=== PATIENT | male | born 1965 | race Caucasian/White ===

== ENCOUNTER 2023-04-25 17:44 | Emergency (ER) | payer MEDICAID, SELFPAY ==
--- NOTE | ~2023-04-25 | CT_ITS ---
EXAMINATION: CT head/brain wo IV con CLINICAL INFORMATION: Reason for Exam blurry vision COMPARISON: None. TECHNIQUE: Contiguous axial imaging was performed from the skull base to vertex without intravenous contrast. Sagittal and coronal reformatted images were obtained. This CT examination was performed using dose optimization techniques as appropriate, variously including the following: * Automated exposure control * Adjustment of mA and/or kV according to patient size (this includes techniques or standardized protocols for targeted exams where dose is matched to indication/reason for exam; i.e. extremities or head) Use of iterative reconstruction technique DLP: 741.51 mGy-cm FINDINGS: No acute osseous or soft tissue abnormality. The mastoid air cells and visualized portions of the paranasal sinuses are well aerated. There is no evidence of acute intracranial hemorrhage or territorial infarction. No abnormal mass effect or midline shift is seen. Joel to white matter differentiation is well preserved. No extra-axial fluid collections are identified. No hydrocephalus. No significant volume loss. There is patchy hypodensity in the supratentorial white matter as well as involving the central karly, presumably reflecting moderate chronic microangiopathy. Chronic bithalamic lacunar infarcts. Left-sided eyelid weight results in streak artifact which obscures the left globe and orbit. CT/CT head/brain wo IV con IMPRESSION: 1. No acute intracranial abnormality including hemorrhage, mass effect, hydrocephalus, or acute territorial edematous infarction. 2. There is patchy hypodensity in the supratentorial white matter as well as involving the central karly, presumably reflecting moderate chronic microangiopathy. Chronic bithalamic lacunar infarcts.
--- NOTE | 2023-04-25 18:03 | ED.GENADULT ---
[facility] - General Adult General Chief complaint: Eye Problems Stated complaint: Blurry vision, hx of strokes, no thinners Time Seen by Provider: 04/25/23 18:02 Source: patient and EMS Mode of arrival: EMS History of Present Illness HPI narrative: 57-year-old male with extensive past medical history of 2 stroke comes in with blurry vision in bilateral eyes since 07:00 o'clock this morning but denies any other symptoms, all residual deficits noted to be stable and chronic for him. He denies any recent fever, chills. Patient initially presented as a stroke alert, however on evaluation there are other etiologies that we will explore in addition to CT of the head. Related Data Allergies Allergy/AdvReac Type Severity Reaction Status Date / Time No Known Allergies Allergy Verified 04/25/23 18:34 Review of Systems Review of Systems: Pertinent positives and negatives as stated in [facility] Past Medical History Source: nursing notes reviewed Onset Date is defined in the Problem List Problems that require an onset date and time if occurred within 24 hrs of arrival to the ED Aortic Dissection and Rupture; Neurologic impairment; Cardiopulmonary Arrest; Endotracheal Intubation; Insertion or Replacement of Mechanical Circulatory Assist Device Social History Social History Smoked in Last 30 Days: No Use of substances other than those prescribed or required for medical reasons: No Physical Exam ED Vital Signs: Vital Signs - 24 hr 04/25/23 18:10 04/25/23 20:31 Temperature 98.3 F Pulse Rate 76 61 Respiratory Rate 16 16 Blood Pressure 134/89 130/90 H Pulse Oximetry 96 97 Oxygen Delivery Method Room Air Room Air BMI result Body Mass Index 28.7 VITAL SIGNS: Reviewed. GENERAL: Well developed, well nourished, in no acute distress. HEAD: Normocephalic/atraumatic EYES: PERRLA, EOMI EARS: Ext canals without abnormality NOSE: Nares patent bilateral OROPHARYNX: no oral lesions noted, posterior pharynx clear NECK: Supple, no adenopathy LUNGS: Normal breath sounds. No adventitious sounds or accessory muscle use. SpO2<96> CARDIOVASCULAR: Regular rate and rhythm without noted murmurs ABDOMEN: Soft, non-tender, non-distended with bowel sounds. MUSCULOSKELETAL: No tenderness, deformities, or effusions noted on gross inspection. EXTREMITIES: No cyanosis, clubbing or edema. SKIN: Inspection of the skin reveals no rashes NEUROLOGIC: Alert and oriented x 4. Patient has noted left facial droop which is baseline for him Medical Decision Making Medical Decision Making [facility] Narrative: 57-year-old male with history and clinical presentation, DDX: Diabetic retinopathy, optic chiasm pathology felt to be less likely, patient is not noted to be hyperglycemic at this time so do not think that this is distortion leading to blurry vision. Patient has no eye pain and do not suspect acute angle glaucoma. I reviewed all investigations and hematologic indices are grossly within normal limits without leukocytosis or left shift, no anemia or thrombocytopenia. Coagulation studies are within normal limits. Chemistry indices do not demonstrate any gross abnormalities as there is no evidence of CHRISTOPHER or electrolyte/liver enzyme derangements. CT of the head is negative for acute intracranial hemorrhage or mass effect. Visual acuity demonstrated OS- 20/50 OD- 20/100 BOTH- 20/70 My interpretation is that patient may be experiencing the need for corrective lenses, there is a possibility the patient will need to pursue evaluation for diabetic retinopathy, I do not find any evidence to suggest any other acute I findings, there is no associated depth abnormality, there is no double vision, and it affects both eyes. There was no associated hyperglycemia. Patient is otherwise discharged with instructions to follow-up with an pyridine recovery operator and he has been given a referral to follow-up with Dr. Navarrete. Differential Diagnosis Differential Diagnoses: The differential diagnosis associated with the presentation includes Please see the discussion above Admission/Observation Consideration of admission/observation: Escalation of care including admission/observation considered Please see the discussion above Lab Data [facility] Lab Attestation statement: I reviewed the patient's lab results. Please see the discussion above 04/25/23 19:55 04/25/23 19:55 Labs: Lab Results 04/25/23 04/25/23 Range/Units 19:55 21:16 WBC 8.6 (4.8-10.8) X10*3/uL RBC 4.95 (4.60-5.80) X10*6/uL Hgb 15.0 (14.0-18.0) g/dl Hct 44.0 (42.0-52.0) % MCV 88.9 (80.0-98.0) fL MCH 30.3 (27.0-33.0) pg MCHC 34.1 (31.0-36.0) g/dl RDW 12.3 (11.0-16.0) % Plt Count 252 (160-400) X10*3/uL MPV 10.0 (9.4-12.4) fL Immature Gran % (Auto) 0.2 (0.0-0.4) % Neut % (Auto) 59.3 (45-73) % Lymph % (Auto) 27.1 (20-40) % [place] % (Auto) 9.7 (2-11) % Eos % (Auto) 2.8 (0-4) % Baso % (Auto) 0.9 (0-2) % Lymph # (Auto) 2.3 (1.2-4.9) X10*3/uL [place] # (Auto) 0.8 (0.1-1.2) X10*3/uL Eos # (Auto) 0.2 (0.0-0.4) X10*3/uL Baso # (Auto) 0.1 (0.0-0.2) X10*3/uL Abs Immat Gran (auto) 0.02 (0.00-0.03) X10*3/uL Absolute Neuts (auto) 5.1 (2.0-8.3) x10*3/uL Absolute Nucleated RBC 0.000 (0.0-0.012) X10*3/uL Nucleated RBC % (auto) 0.0 (0.0-0.2) /100WBC PT 13.1 (11.1-13.3) SEC INR 1.1 (0.9-1.1) Sodium 144 (135-145) mmol/L Potassium 3.4 (3.3-5.1) mmol/L Chloride 106 (96-108) mmol/L Carbon Dioxide 29 (22-29) mmol/L Anion Gap 12 (12-20) BUN 10 (9-16) mg/dL Creatinine 0.79 (0.5-1.4) mg/dL Estim Creat Clear Calc 112.4 Estimated GFR > 60 POC Glucose 94 (60-115) mg/dL Random Glucose 91 (60-115) mg/dL Calcium 9.5 (8.4-10.2) mg/dL Total Bilirubin 0.7 (0.0-1.0) mg/dL AST 23 (5-37) U/L ALT 28 (0-40) U/L Alkaline Phosphatase 104 (39-117) U/L Total Protein 7.3 (6.5-8.0) g/dL Albumin 4.0 (3.5-5.0) g/dL Independent Interpretation I performed an independent interpretation of an: EKG Interpretation: Sinus bradycardia, HR-58, no STEMI, MT/QTC are within normal limits. Radiology Impression Discussion of test interpretation with radiology: I have reviewed the radiologist's reading. Radiologist Impression: Please see the discussion above Chronic Conditions Patient?s care impacted by: Diabetes, Hypertension and Other 2 prior CVAs Critical Care Time Critical Care Time Critical Care Time: Yes Total Critical Care Time: 45 Attestation: I personally attest to this time spent taking care of the patient. Discharge Plan Discharge Clinical Impression: Blurred vision, bilateral Patient Disposition: Home, Self-Care Instructions: Blurred Vision (ED) Additional Instructions: 1. Take home medications as prescribed. 2. I have provided you with a referral for an pyridine recovery operator and recommend that you follow-up at your earliest convenience by calling the office and setting up an appointment. 3. Please follow-up with your primary care doctor in the next 1-2 days. Return to the ER for any worsening symptoms. Referrals: Sinan Navarrete [Physician] -
[2023-04-25 18:10] VITALS: BP 126/74; BP 134/89; PULSE 76; PULSE 88; RESP 16; O2SAT 96; O2SAT 98; BMI 28.7
--- NOTE | 2023-04-25 19:25 | ECG_ITS ---
Test Reason : BLURRY VISION Blood Pressure : / mmHG Vent. Rate : 058 BPM Atrial Rate : 058 BPM P-R Int : 168 ms QRS Dur : 102 ms QT Int : 470 ms P-R-T Axes : 038 016 -22 degrees QTc Int : 461 ms Sinus bradycardia Cannot rule out Anterior infarct , age undetermined T wave abnormality, consider inferior ischemia Abnormal ECG No previous ECGs available Referred By: Michelle Reddy Electronically Signed By:MANJINDER DOMINGUEZ MD
[2023-04-25 19:59] LABS: MANUAL DIFF FLAG NO
[2023-04-25 20:01] LABS: Basophils Absolute Auto 0.1 X10*3/uL (0.0-0.2); Basophils Percent Auto 0.9 % (0-2); Eosinophils Absolute Auto 0.2 X10*3/uL (0.0-0.4); Eosinophils Percent Auto 2.8 % (0-4); Imm Gran Abs Auto 0.02 X10*3/uL (0.00-0.03); Imm Gran Pct Auto 0.2 % (0.0-0.4); Lymphocytes Absolute Auto 2.3 X10*3/uL (1.2-4.9); Lymphocytes Percent Auto 27.1 % (20-40); Mean Corpuscular HGB Conc 34.1 g/dl (31.0-36.0); Mean Corpuscular Hemoglobin 30.3 pg (27.0-33.0); Mean Corpuscular Volume 88.9 fL (80.0-98.0); Monocytes Absolute Auto 0.8 X10*3/uL (0.1-1.2); Monocytes Percent Auto 9.7 % (2-11); Neutrophils Absolute Auto 5.1 x10*3/uL (2.0-8.3); Neutrophils Percent Auto 59.3 % (45-73); Platelet Count 252 X10*3/uL (160-400); Red Blood Count 4.95 X10*6/uL (4.60-5.80); Red Cell Distribution Width 12.3 % (11.0-16.0); White Blood Count 8.6 X10*3/uL (4.8-10.8)
[2023-04-25 20:06] LABS: INTERNATIONAL NORM RATIO 1.1 (0.9-1.1); Prothrombin Time 13.1 SEC (11.1-13.3)
[2023-04-25 20:13] LABS: Alanine Aminotransferase 28 U/L (0-40); Alkaline Phosphatase 104 U/L (39-117); Anion Gap 12 (12-20); Aspartate Amino Transferase 23 U/L (5-37); Bilirubin Total 0.7 mg/dL (0.0-1.0); Blood Urea Nitrogen 10 mg/dL (9-16); Calcium 9.5 mg/dL (8.4-10.2); Carbon Dioxide 29 mmol/L (22-29); Chloride 106 mmol/L (96-108); Creatinine Clr Calc Pharmacy 112.4; Estimated Glomerular Filt Rate > 60; Glucose Random 91 mg/dL (60-115); Potassium 3.4 mmol/L (3.3-5.1); Sodium 144 mmol/L (135-145); Total Protein 7.3 g/dL (6.5-8.0)
[2023-04-25 20:31] VITALS: BP 130/90; PULSE 61; RESP 16; TEMP 36.8; O2SAT 97
[2023-04-25 21:19] LABS: Glucose, Whole Blood 94 mg/dL (60-115)
--- NOTE | 2023-04-25 23:57 | PC.NURSE ---
message left for daughter in law regarding d/c and picking up pt
== END 2023-04-26 01:16 | disposition home or self-care (01) ==
LOC: HO.ED 04-26 00:32
PROVIDERS: Emergency Provider Student in an Organized Health Care Education/Training Program
DX: H53.8 Other visual disturbances (principal); R00.1 Bradycardia, unspecified; Z79.899 Other long term (current) drug therapy
CPT/HCPCS: 36415; 70450; 80053; 82947; 85025; 85610; 93005; 99284

== ENCOUNTER → 2023-04-25 19:25 | Outpatient (BNV) | payer SELFPAY | PROVIDERS: Emergency Provider Student in an Organized Health Care Education/Training Program; Visit Provider Internal Medicine Cardiovascular Disease | DX: R00.1 Bradycardia, unspecified (principal); R94.31 Abnormal electrocardiogram [ECG] [EKG] | CPT/HCPCS: 93010 ==